=== PATIENT | male | born 1995 ===

== ENCOUNTER 2017-08-31 16:58 | Emergency (ER) | payer SELFPAY ==
--- NOTE | 2017-08-31 18:39 | RAD ---
RIGHT WRIST THREE VIEWS 08/31/17 HISTORY: Fall. Right wrist injury. FINDINGS: Scaphoid waist is intact. Ulna negative variance is noted. There is minimal posterior displacement of a 0.3 cm ossific fragment on the posterior margin of the triquetral on the lateral view. The bases of the fourth and fifth metacarpals are intact. A 0.8 cm triangular fragment results from an oblique fracture through the medial base of the first m etacarpal with 0.3 cm intra-articular gap and 0.1 cm step-off. IMPRESSION: Fractures involve the right first metacarpal base, with intra-articular extension, and the triquetra l. Please consider immobilization and urgent orthopedic evaluation. POS: ROSA MARIA
--- NOTE | 2017-08-31 18:43 | CT ---
CT HEAD NONCONTRAST: 08/31/17 HISTORY: Fall. Head injury. FINDINGS: No comparison. There is no evidence of acute intracranial hemorrhage or infarct. The ventricles appe ar normal in size, shape and position. There is no mass effect or shift of midline structures. A smo othly marginated 0.3 cm hyperdense focus within the left parietal scalp soft tissues has the appeara nce of an embedded foreign body, age indeterminate. IMPRESSION: No acute intracranial abnormalities are demonstrated. POS: LIBBYH
== END 2017-08-31 19:25 | disposition home or self-care (01) ==
LOC: ERS 16:58
DX: S62.111A Displaced fracture of triquetrum [cuneiform] bone, right wrist, initial encounter for closed fracture (principal); S62.231A Other displaced fracture of base of first metacarpal bone, right hand, initial encounter for closed fracture; S09.90XA Unspecified injury of head, initial encounter; S80.212A Abrasion, left knee, initial encounter; S80.211A Abrasion, right knee, initial encounter; S00.81XA Abrasion of other part of head, initial encounter; S10.91XA Abrasion of unspecified part of neck, initial encounter; S60.512A Abrasion of left hand, initial encounter; V19.9XXA Pedal cyclist (driver) (passenger) injured in unspecified traffic accident, initial encounter; Y93.55 Activity, bike riding
CPT/HCPCS: 29125; 70450